=== PATIENT | female | born 1945 | race Caucasian/White ===

== ENCOUNTER → 2019-09-20 | Outpatient (CLI) | payer MEDICARE ==
--- NOTE | 2019-09-20 14:32 | CT ---
EXAM DESCRIPTION: Lumbar Spine CLINICAL HISTORY: 74 years, Female, RADICULOPATHY LUMBAR REGION COMPARISON: MRI of the lumbar spine August 17, 2007 TECHNIQUE: Lumbar CT with thin-section axial imaging with reconstructed MPR images reviewed as well. This exam was performed according to our departmental dose-optimization program, which includes automated exposure control, adjustment of the mA and/or kV according to patient size and/or use of iterative reconstruction technique. FINDINGS: Mild levoscoliosis of the lumbar spine centered at the L3 level is present with extensive prior lower lumbar surgery from the mid L4 level to the upper sacrum with wide decompressive laminectomy and bilateral L4-5 pedicle screws and vertical links with a single transverse length at the mid L4 level. Bone graft material posterior laterally at L4-5 appears to be indistinct but not completely mature infusion. The surgical changes are all new from previous study with stable grade 2 spondylolisthesis of L4 on L5 with disc graft material at this level and partial anterior interbody fusion evident. No compression deformities noted. Patient has developed advanced disc degenerative narrowing with endplate sclerosis and irregularity at L2-3 with vacuum phenomena and epidural gas in the anterior epidural space below the disc space at the upper L3 level right greater than left and likely related to disc degeneration and annular fissures. Broad-based annular bulge at this level with at least mild AP diameter canal stenosis is evident. Modest annular bulge with adequate canal and neural foramina at L1-2 is present with mild annular bulge at T12-L1 noted. No lateralizing herniation is seen. At L3-4 modest annular bulges suggested with moderately advanced facet arthropathy and ligamentum flavum hypertrophy. Thecal sac in the lower range of normal is suspected but the image quality at the level of the disc space is limited by the metallic artifact. At L4-5, partial anterior interbody fusion with stable grade 2 spondylolisthesis and posterior decompression of the thecal sac noted. Between the posterior superior margin of the L5 vertebral body and the inferior margin of the partially resected L4 lamina a residual modest element of AP diameter canal stenosis is suspected. This is best appreciated on the sagittal imaging. The overall appearance is improved from the preoperative remote MR examination in 2006 but at least an element of stenosis persists. At L5-S1, minimal annular prominence with satisfactory posterior decompression is present with normal alignment and preserved disc space. Adequate bony neural foramina are noted. No significant stenosis at this level evident. IMPRESSION: 1. Mild levoscoliosis centered at L3 with interval laminectomy from the mid L4 level to the upper sacrum with bilateral L4-5 pedicle screws and vertical rods in place. This is all new from 2007 with stable grade 2 spondylolisthesis L4-5 and intervertebral disc graft at this level that appears to be completely mature. 2. Advanced disc degeneration and vacuum phenomena L2-3 with [id number] appearance of the disc space and anterior epidural gas consistent with annular fissure at the upper L3 level, with mild AP diameter canal stenosis. 3. Stable alignment of the grade 2 spondylolisthesis L4-5 with pedicle screw fixation of. I remain concerned there is an element of at least mild AP diameter canal stenosis between the superior posterior lip of the L5 vertebral body in the inferior margin of the residual L4 lamina in place. 4. Decompressive posterior laminectomy at the L5-S1 level with adequate canal and neural foramina without evidence of interbody or posterior lateral fusion material in place. Electronically signed by: Nahid Montes MD 09/20/2019 2:31 PM [facility]
== END ==
LOC: CT 11:00
PROVIDERS: ATTEND Psychiatry & Neurology Neurology
DX: M51.16 Intervertebral disc disorders with radiculopathy, lumbar region (principal); M41.86 Other forms of scoliosis, lumbar region; M43.16 Spondylolisthesis, lumbar region; Z98.890 Other specified postprocedural states

== ENCOUNTER → 2019-09-22 | Outpatient (CLI) | payer MEDICARE ==
--- NOTE | 2019-09-23 09:47 | MRI ---
EXAM DESCRIPTION: Lumbar Spine w/o Contrast : Magnetic Resonance Imaging. CLINICAL HISTORY: RADICULOPATHY COMPARISON: Pre fusion MRI lumbar scan July 2007. CT scan lumbar spine 20 September 2019. TECHNIQUE: Multiplanar, multiple standard sequences, non contrast MRI, lumbar spine. FINDINGS: L5-S1: The disc is well visualized on axial T2 series 501, image 3. Minimal disc desiccation with disc space maintained. Minimal degenerative hypertrophy of the facet and ligaments more on the left. Posterior decompression; no significant canal narrowing. Bilateral mild foraminal narrowing. Posterior fusion construct L4-L5 with bilateral transpedicular fusion screws and unilateral connecting rods with cross-link. Magnetic susceptibility artifact with the hardware but normal bone density around the hardware. No soft tissue mass or abnormal fluid collection. L4-L5: 11 mm grade 2 anterolisthesis. Disc remnant is desiccated with moderate endplate reactive changes diffusely. Minimal anterior bulging and spurs. Fusion of the facet joints. Bilateral partial inferior laminectomy. AP canal diameter 6.5 mm. Bilateral foraminal stenosis. Minimal narrowing of the bilateral subarticular recesses. L3-L4: Minimal disc desiccation with disc space maintained. Mild degenerative hypertrophy of the facet joints and ligaments more on the left narrowing the posterior canal. AP canal diameter 10 mm. Mild bilateral foraminal narrowing more on the left. L2-L3: Advanced spondylosis in the midline into the right of midline as well as anterior and posterior, sparing the left disc space. Anterior endplate ridging and bulging disc. Right posterior disc remnant extruding into the right subarticular recess impinging the right L3 nerve. Also broad-based disc bulge into the canal and narrowing of the left subarticular recess abutting the left L3 nerve. Bilateral degenerative hypertrophy of the facet joints and ligaments. Minimal retrolisthesis 2 mm. AP canal diameter 8 mm. Disc spur complex on the right causing severe foraminal narrowing with moderate narrowing of the left foramen. L1-L2: Disc desiccation with disc space maintained. Anterior bulge and endplate ridging. Bilateral mild to moderate foraminal narrowing. Posterior degenerative hypertrophic facet joints and ligaments. No significant canal narrowing. T12-L1: Minimal disc desiccation with disc space maintained. No bulging. Minimal hypertrophy of the posterior ligaments with degeneration. Canal and foramina patent. Conus terminates just above the disc space. Hyperintense T1 and T2 circumscribed hemangioma in the posterior T12 vertebral body and the inferior L3 vertebral body and superior L2 vertebral body abutting the endplate. L2-L4 levoscoliosis. Paravertebral soft tissues muscle atrophy.. Distal cord normal signal and caliber. Otherwise normal marrow signal in the remaining vertebral bodies and the posterior elements. Vertebral bodies are not compressed at any level. IMPRESSION: 1. Posterior fusion construct L4-L5. No hardware or bony complications. Customary position and near-anatomic alignment. No soft tissue mass or fluid collection. 2. 11 mm grade 2 anterolisthesis at L4-L5. Severe central canal stenosis and bilateral foraminal stenosis. Minimal narrowing of the bilateral subarticular recesses. 3. Borderline mild central canal stenosis. Mild bilateral foraminal narrowing at L3-L4. 4. Advanced spondylosis at L2-L3. Right posterior disc herniation and extrusion into the right subarticular recess impinging the right L3 nerve. Disc bulge effacing the left subarticular recess and abutting the left L3 nerve. Right side spondylosis and disc spur complex with severe foraminal narrowing abutting the right L2 nerve. Electronically signed by: Cirilo Hdz MD 09/23/2019 9:46 AM [facility]
== END ==
LOC: MRI 11:00
PROVIDERS: ATTEND Psychiatry & Neurology Neurology
DX: M47.26 Other spondylosis with radiculopathy, lumbar region (principal); M51.16 Intervertebral disc disorders with radiculopathy, lumbar region; M43.16 Spondylolisthesis, lumbar region; Z98.1 Arthrodesis status; M48.061 Spinal stenosis, lumbar region without neurogenic claudication